=== PATIENT | female | born 1980 | race Caucasian/White ===

== ENCOUNTER → 2021-02-24 | Day surgery (SDC) | payer OTHER ==
[~2021-02-24] MED LIST: Multivitamins, Adult 10 ML in Sodium Chloride 0.9% 500 ML IV SCH; Ondansetron PF 4 MG/2 ML Vial IVP PRN; Sodium Chloride 0.9% 2,000 ML IV SCH; Thiamine HCl 200 MG/2 ML VIAL SLOW IVP SCH
[2021-02-24 14:51] VITALS: BP 108/66
== END ==
LOC: ONC/OP 14:03
PROVIDERS: ATTEND Surgery
DX: E86.0 Dehydration (principal); Z88.5 Allergy status to narcotic agent; Z88.8 Allergy status to other drugs, medicaments and biological substances
CPT/HCPCS: 96361; 96365; 96366; J3411; J7030

== ENCOUNTER 2022-06-08 12:01 | Outpatient (CLI) | payer OTHER, SELFPAY | END 2022-06-08 12:02 | disposition home or self-care (01) | LOC: SCSMRI 12:01 | PROVIDERS: ATTEND Psychiatry & Neurology Neurology with Special Qualifications in Child Neurology | DX: G35 Multiple sclerosis (principal); M47.894 Other spondylosis, thoracic region; M47.892 Other spondylosis, cervical region; M25.78 Osteophyte, vertebrae; M50.322 Other cervical disc degeneration at C5-C6 level; M50.323 Other cervical disc degeneration at C6-C7 level; M48.02 Spinal stenosis, cervical region | CPT/HCPCS: 70553; 72156; 72157 ==

== ENCOUNTER 2022-12-04 11:17 | Emergency (ER) | payer OTHER | END 2022-12-04 14:30 | LOC: ERS 11:17 | DX: Z45.2 Encounter for adjustment and management of vascular access device (principal) | CPT/HCPCS: 36569; 99282; C1751 ==

== ENCOUNTER 2023-03-16 12:59 | Outpatient (CLI) | payer OTHER | END 2023-03-16 13:00 | disposition home or self-care (01) | LOC: SCSRAD 12:59 | PROVIDERS: ATTEND Nurse Practitioner Family | DX: R09.89 Other specified symptoms and signs involving the circulatory and respiratory systems (principal) | CPT/HCPCS: 71046 ==